=== PATIENT | male | born 1965 | race Caucasian/White ===

== ENCOUNTER 2016-11-16 14:33 | Inpatient (IN) | payer MEDICARE, MEDICAID ==
[~2016-11-16] VITALS: Ht 185.4 cm; Wt 95.2 kg
[2016-11-16] MEDS ORDERED: NAPR1TAB86 PO (19:32)
[2016-11-16] MEDS ORDERED: GUAN1TA PO (19:32)
[2016-11-16] MEDS ORDERED: OLAN20TA PO (19:32)
[2016-11-16] MEDS ORDERED: CYCL10TA PO (19:32)
[2016-11-16] MEDS ORDERED: LYRI100C10 PO (19:32)
[2016-11-16] MEDS ORDERED: ROPI1TAB PO (19:32)
[2016-11-16] MEDS ORDERED: STRA80CA PO (19:32)
[2016-11-16] MEDS ORDERED: ALBU17IN INH (19:32)
[2016-11-16] MEDS ORDERED: GABA800T PO (19:32)
[2016-11-16] MEDS ORDERED: TOPI25TA3 PO (19:32)
[2016-11-16] MEDS ORDERED: LEXA5TAB13 PO (19:32)
[2016-11-16] MEDS ORDERED: ADDE25CA PO (19:32)
[2016-11-16] MEDS ORDERED: CIMZ200K SC (19:32)
[2016-11-16] MEDS ORDERED: NALT50TA2 PO (19:32)
[2016-11-16] MEDS ORDERED: DIVA500T9 PO (19:32)
[2016-11-16] MEDS ORDERED: LORA10TA2 PO (19:32)
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
--- NOTE | 2016-11-16 20:24 | EDDOCDS ---
Physician Documentation [facility] Name: Mansoor Denney Age: 50 yrs Sex: Male : 1965 Arrival Date: 11/16/2016 Time: 14:33 Bed I6 / Private MD: Disposition: 11/16/16 20:11 Hospitalization ordered by Ericka Kyle for Inpatient Admission. Preliminary diagnosis are Major depressive disorder, single episode, Suicidal ideations. - Bed requested for Admit. - Status is Inpatient Admission. dsf - Condition is Stable. - Problem is new. - Symptoms are unchanged. Historical: - Allergies: PENICILLINS; - Home Meds: 1. pregabalin 100 mg Oral cap 2 times per day 2. naproxen 500 mg Oral tab 1 tab 2 times per day 3. olanzapine 20 mg oral tab twice a day 4. divalproex 500 mg oral Tb24 1 tab nightly 5. cyclobenzaprine 10 mg Oral tab 3 times per day prn 6. escitalopram 5mg daily 7. Strattera 80 mg oral cap 1 cap once daily 8. sucralfate 1 gram Oral tab 4 times per day 9. naltrexone 50 mg oral tab once daily 10. topiramate 25 mg oral cp24 1 cap once daily 11. adderall 25mg daily 12. guanfacine 1 mg Oral tab twice a day FILLED ON 11/11 13. gabapentin 800 mg Oral tab 1 tab four times a day 14. ropinirole 3 mg oral tab 1 tab nightly - PMHx: restless leg; ADHD; opiate abuse; Bipolar disorder; - PSHx: none; - Social history: Smoking status: Patient uses tobacco products, heavy tobacco smoker. No barriers to communication noted, The patient speaks fluent Indonesian, Speaks appropriately for age. - Family history: Not pertinent. - : The pt / caregiver states he / she is not on anticoagulants. Home medication list is obtained from pill bottles, some pill bottles missing Unable to Verify Home Med List with the patient / caregiver. - Exposure Risk Screening:: None identified. Vital Signs: 11/16 15:18 BP 104 / 78; Pulse 92; Resp 20; Temp 98.0; Pulse Ox 97% ; Pain 8/10; jam1 15:18 Weight 101.15 kg / 223 lbs; Height 6 ft. 1 in. (185.42 cm); jam1 19:41 BP 118 / 80; Pulse 94; Resp 18; Temp 97.0; Pulse Ox 97% ; Pain 9/10; ajs 15:18 Body Mass Index 29.42 (101.15 kg, 185.42 cm) jam1 19:[address] Sandoval [facility] MDM: 15:08 Vital Signs ordered. ml 15:09 Consult PFS/PSA/Health Economist: Patient's case requires discussion with on-call Psychiatrist ordered. 16:01 Consult PFS/PSA/Health Economist: Patient's case requires discussion with on-call [facility] Psychiatrist complete. 16:21 REGULAR DIET PLASTIC MURDOCK+DIET ordered. EDMS 17:27 Admit to IMHU: ordered. EDMS 18:25 MHE Legal paperwork was scanned into [employer] and attached to record. 19:22 Misc. Nursing Order ordered. 19:23 BED REQUEST+ADM ordered. EDMS 19:39 Financial registration complete. ks16 19:42 [place] Payment Agreement was scanned into [employer] and attached to record. [email or web address] Signatures: Dispatcher [employer] EDNoy Miller MD MD ml Michelson, Staci, RN RN srm Hudson, Sergio, PSA PSA Teresita Luther,RN RN dsLita Hutson RN RN Fernanda Haley, Reg Reg ks16 The chart was reviewed and I authenticate all verbal orders and agree with the evaluation and treatment provided.Corrections: (The following items were deleted from the chart) 19:50 15:13 Home Meds: ropinirole 3 mg oral tab 1 tab as directed; srm dsf 20:12 20:08 VALPROIC ACID (DEPAKOTE)+LAB ordered. EDMS EDMS Attachments: 19:42 [facility] Payment Agreement [email or web address] MTDD
[2016-11-16 20:36] VITALS: BP 118/87
[2016-11-17] MEDS ORDERED: ALBUTEROL 90 MCG/ACT 8GM HFA INHALER INH PRN (00:30)
[2016-11-17] MEDS ORDERED: MAALOX 30 ML SUSP *UDC PO PRN (01:15)
[2016-11-17] MEDS ORDERED: ACETAMINOPHEN TAB 650MG DOSE (2X325MG) PO PRN (01:15)
[2016-11-17] MEDS ORDERED: MOM 30ML SUSPENSION UDC PO PRN (01:15)
[2016-11-17] MEDS: PREGABALIN 100 MG CAP (LYRICA) PO SCH ×3 (01:16→21:11)
[2016-11-17] MEDS: CYCLOBENZAPRINE 10 MG TAB PO SCH ×4 (01:16→21:10)
[2016-11-17] MEDS: NAPROXEN 250 MG TAB PO SCH ×3 (01:17→21:11)
[2016-11-17] MEDS: DIVALPROEX 250MG *ER* TAB PO SCH ×2 (01:17→21:10)
[2016-11-17] MEDS: OLANZapine 10 MG TAB PO SCH ×3 (01:18→21:11)
[2016-11-17] MEDS: guanFACINE 1 MG TAB PO SCH ×3 (01:24→21:10)
[2016-11-17] MEDS: rOPINIRole 1MG TAB PO SCH ×2 (01:24→21:11)
[2016-11-17 06:30] VITALS: BP 110/67
[2016-11-17] MEDS: NALTREXONE 50 MG TAB PO SCH (08:17)
[2016-11-17] MEDS: TOPIRAMATE (TopAMAX) 25 MG TAB PO SCH (08:17)
[2016-11-17] MEDS: ESCITALOPRAM OXALATE 5MG TABLET (LEXAPRO) PO SCH (08:17)
[2016-11-17] MEDS: NICOTINE 21MG/24HR 1 EA TRANSDERMAL TD SCH (08:17)
[2016-11-17] MEDS: ATOMOXETINE HCL 40 MG CAP (STRATTERA) PO SCH (08:17)
[2016-11-17] MEDS: LORATADINE 10 MG TAB PO SCH (08:18)
--- NOTE | 2016-11-17 11:21 | HPEPDOC ---
Medical History and Physical Date of Admission Nov 16, 2016 at 20:30 History and Physical PCP: Dr Philippe Meier ATTENDING: Dr. Luis Mohr HPI: 50yoF admitted to [facility] for MDD, being medically examined today. Patient is transferred from [facility]. Recently admitted to [facility]. Patient is reporting chronic low back pain which she states is not adequately controlled on his usual pain control/outpatient medication regimen. He is requesting adjustment in his medications. He states his primary care provider in [place] prescribes his medications for his back pain which include Lyrica, Flexeril, and gabapentin. Requip for restless leg syndrome. He states his previous primary care provider prescribed him fentanyl patch 100 g and this worked much better for his pain and he is requesting to be placed on this today. He is requesting pain management opinion. Denies any fevers, chills, weakness, fatigue, PEDRO, CP, SOB, cough, palpitations , abdominal pain, N/V/D or changes in bowel or bladder habits. PMHx: RLS ADHD Bipolar disorder opiate use disorder chronic back pain Chronic pain H/O Hepatitis C- Pt states s/p 3 mo treatment completed 04/29 [facility]. Ankylosing spondylitis Tobacco use Allergic rhinitis COPD PSHX: Denies SOCHX: Resides in: [facility] Marital Status: Kids: 2 Employment: Disabled Tobacco use: 2-3 packs per day ETOH: 6 beers per week Illicit Drugs: Crack cocaine patient states "when I can", marijuana monthly. IV Drug Use: Denies Tattoos done unprofessionally: 6 FAMHX: Mother: , lung cancer Father: Estranged Siblings: 2 sisters Alive, well Children: Alive, well Unexpected deaths due to medical reasons: None. ROS: As noted in HPI, otherwise 11pt ROS of systems reviewed and unremarkable. PE: GEN: 50yoM, appears stated age. Well-nourished, well developed. No acute distress. Alert and oriented x 3. Pleasant, interactive. HEENT: Normocephalic, atraumatic. Pupils are equal, round, and reactive to light. Extraocular movements are intact. No nystagmus appreciated. Sclera are nonicteric. Conjunctiva without injection. Nose midline. Nasal turbinates without bogginess. EACs both patent BL. TMs both visualized and horan with good cone of light, no bulging or erythema. No facial asymmetry. Moist mucous membranes. Dentition fair. Pharynx pink and moist, no cobblestoning. Neck supple , trachea midline. No lymphadenopathy or thyromegaly appreciated. CHEST: Regular rate and rhythm, +S1, +S2 LUNGS: Clear to auscultation bilaterally. No wheezes, rales, or rhonchi. Breathing appears symmetric and easy. Patient is speaking in full sentences. No accessory muscle use. ABD: Round, soft, non-tender, non-distended. +Bowel sounds throughout. No rebound or guarding. No costovertebral angle tenderness. EXT: Pulses 2+ bilaterally dorsalis pedis and radial. No lower extremity edema appreciated. SKIN: [place], dry, warm. Capillary refill <2sec. No rashes. NEURO: Alert and oriented x 3. Cranial nerves III-XII are intact. No focal deficits appreciated. Ambulating without assistive devices. EKG: pending. Labs from [facility] Toxicology remarkable for THC, amphetamine, opiate, TCA UA unremarkable, WBC 11.5 Hgb 16.5 Hct 48.2 Plt 291 BUN 21 SCr 1.2 Na 138 K 4.0 Cl 103 Ca 8.9 AST 18 ALT 28 TSH 0.984 A&P: 50yoF admitted to [facility] for MDD 1. Psych. Plan per Psychiatry. Obtain baseline EKG to assure the safety of psychiatric medications as they can prolong the QT interval. 2. Nicotine dependence. Patch available. 3. Borderline EKG. No cardiac signs or symptoms appreciated on exam, follow with PCP. 4. Follow up with PCP on discharge. 5. Substance use. Per psychiatry. Continue with MVI, Thiamine, and Folic Acid supplementation. 6. Restless leg syndrome. Continue Requip 3 mg at bedtime. 7. Chronic back pain/chronic pain. Patient remains on Lyrica 100 mg twice a day , Flexeril 10 mg 3 times a day, naproxen 500 mg twice a day as needed. Will request copy of records from primary care provider including any prior imaging. Consider pain management consultation. Confirm outpatient medication regimen. 8. Allergic rhinitis. Continue loratadine 10 mg daily. 9. Ankylosing spondylitis. Continue Cimzia 200 mg subcutaneous every monthly. 10. COPD. Continue albuterol 2 puffs every 4 hours as needed. 11. Staff member present throughout exam, safety relief valve technician Ed. Vital Signs Vital Signs Label Value Date Time Patient Temperature 95.9 degrees F 11/17/16 0630 Temperature Source Tympanic 11/17/16 0630 Pulse 88 11/17/16 0630 Respiratory Rate 18 bpm 11/17/16 0630 Blood Pressure Assessment 110/67 (81) 11/17/16 0630 Home Medications Scheduled Amphetamine/Dextroamphetamine (Adderall Xr 25 mg) 1 Cap Cap 1 CAP PO DAILY Atomoxetine Hcl (Strattera) 80 Mg Cap 80 MG PO DAILY Certolizumab Pegol (Cimzia) 200 Mg/Ml Kit 200 MG SC QMONTH Divalproex Sodium (Divalproex Sodium ER) 500 Mg Tab 500 MG PO QHS Escitalopram Oxalate (Lexapro) 5 Mg Tab 5 MG PO DAILY Gabapentin (Gabapentin) 800 Mg Tab 800 MG PO QID Guanfacine HCl (Guanfacine HCl) 1 Mg Tab 1 MG PO BID Naltrexone HCl (Naltrexone HCl) 50 Mg Tab 50 MG PO DAILY Olanzapine (Olanzapine) 20 Mg Tab 20 MG PO BID Pregabalin (Lyrica) 100 Mg Cap 100 MG PO BID Ropinirole Hydrochloride (Ropinirole HCl) 1 Mg Tab 3 MG PO QHS Topiramate (Topiramate) 25 Mg Tab 25 MG PO DAILY Scheduled PRN Albuterol Sulfate (Ventolin Hfa) 200 Puff/8 Gm Aers 2 PUFF INH Q4H PRN PRN SHORTNESS OF BREATH Cyclobenzaprine HCl (Cyclobenzaprine HCl) 10 Mg Tab 10 MG PO TID PRN PRN SPASMS Loratadine (Loratadine) 10 Mg Tab 10 MG PO DAILY PRN PRN ALLERGIES Naproxen Sodium (Naproxen Sodium) 500 Mg Tab 500 MG PO BID PRN PRN PAIN Allergies Coded Allergies: Penicillins (Unverified Allergy, Unknown, 11/16/16) Alycia Beatty Nov 17, 2016 11:21
[2016-11-17 18:00] VITALS: BP 132/83
[2016-11-17] MEDS: traZODone 50 MG TAB PO PRN (21:11)
--- NOTE | 2016-11-18 02:13 | MHHPE ---
DATE OF ADMISSION: 11/16/2016 DATE OF SERVICE: 11/17/2016 CHIEF COMPLAINT: I was depressed and suicidal. HISTORY OF PRESENTING ILLNESS: Mansoor Denney is a 50-year-old man with reported history of psychiatric problems who was seen at the emergency department as a transfer from [facility] due to presenting at that facility, the night prior to his [facility] ([facility] [place]) visit, with acute suicidal ideation and report of worsening depression. He reports a long history of depression and previous diagnosis of bipolar disorder, and stated that in the past 2 days his depressive symptoms have been worsening. He cites his leaving him and not allowing him to see their 3-year-old son, as well as financial difficulties and chronic pain, as precipitating factors for current worsening depression. He says that he has been behind on his rent since July and fears that he will soon be evicted. Due to said stressors, he said he felt that he was better off killing himself. PAST PSYCHIATRIC HISTORY: The patient reports a lengthy history of bipolar disorder and previous diagnosis of attention deficit hyperactivity disorder (ADHD). He reports two previous psychiatric hospitalizations at [facility], both this year. Previously, was followed by Dr. Fowler in [place]. He has been with the same doctor for 5 years. He is unable to remember details of his treatments including the medications. He reports a previous suicide attempt, involving stabbing himself in the abdomen ( superficially), but was stopped by state troopers who "tased" him at the time. SUBSTANCE ABUSE HISTORY: He smokes 2-3 packs of cigarettes a day, uses alcohol occasionally, although used to be a heavy drinker in the past. He reports that he uses crack cocaine occasionally, but last used about a month ago and has been clean since then. MEDICAL HISTORY: He reports ankylosing spondylitis causing severe back pain. ALLERGIES: He is allergic to PENICILLIN. PERSONAL HISTORY: He reports that he was born in [place]. He has been for 6 years, has two children, 5-year-old male and 3-year-old male. LEGAL HISTORY: Involves what he describes as a couple of arrests. EDUCATION: He read up to the 10th grade. Currently supports himself through disability funds. FAMILY HISTORY: Grandmother had nervous breakdown. No family history of suicide. MENTAL STATUS EXAMINATION: The patient is of tall, average build. He wears a salt and pepper type philip. His grooming and hygiene are fair. He is appropriately dressed. Behavior is calm, and he relates conversationally and appears not to be in distress. No abnormal involuntary movements noted. His speech is of normal volume, rate and rhythm. Thought process is logical. No delusional contents and he denies any form of hallucination. He reports his mood as depressed. Reports fleeting suicidal thoughts, but denied active plans or intents. He is alert and oriented to time, place and person. His insight is fair and judgment is not impaired. DIAGNOSES: 1. Bipolar disorder. 2. History of ankylosing spondylitis. PROBLEM LIST: 1. Depression. 2. Risk for suicide. PLAN: Admission to inpatient services with provision of safe therapeutic setting, He will be continued on his current home medications with ongoing reviews and dose adjustments as may be clinically indicated. He will be provided with therapeutic programming including group, individual and activity therapies, ongoing assessments and supportive therapy. Estimated length of stay: 4-7 days. [facility]
[2016-11-18 06:35] VITALS: BP 116/60
[2016-11-18] MEDS: OLANZapine 10 MG TAB PO SCH ×2 (09:45→21:00)
[2016-11-18] MEDS: CYCLOBENZAPRINE 10 MG TAB PO SCH ×3 (09:45→21:00)
[2016-11-18] MEDS: guanFACINE 1 MG TAB PO SCH ×2 (09:45→21:01)
[2016-11-18] MEDS: PREGABALIN 100 MG CAP (LYRICA) PO SCH ×2 (09:45→21:00)
[2016-11-18] MEDS: TOPIRAMATE (TopAMAX) 25 MG TAB PO SCH (09:45)
[2016-11-18] MEDS: NICOTINE 21MG/24HR 1 EA TRANSDERMAL TD SCH (09:45)
[2016-11-18] MEDS: NALTREXONE 50 MG TAB PO SCH (09:46)
[2016-11-18] MEDS: LORATADINE 10 MG TAB PO SCH (09:46)
[2016-11-18] MEDS: ESCITALOPRAM OXALATE 5MG TABLET (LEXAPRO) PO SCH (09:46)
[2016-11-18] MEDS: NAPROXEN 250 MG TAB PO SCH ×2 (09:46→21:01)
[2016-11-18] MEDS: ATOMOXETINE HCL 40 MG CAP (STRATTERA) PO SCH (09:46)
--- NOTE | 2016-11-18 11:57 | CR.PDOC ---
[facility] Consultation General Date of Consultation: 11/18/16 Chief Complaint The patient is a 50-year-old male admitted with a reason for visit of Unspecified Depressive Disorder. Pain management is asked to see the patient for complaints of low back pain radiation of pain into the right leg and a reported history of ankylosing spondylitis. History of Present Illness Patient reports that he has been having back pain for many years. Patient reports he was diagnosed with ankylosing spondylitis in 2004. Patient reports that he takes an injection every 2 weeks for treatment of this disease. Patient reports that over the last several weeks he has been having increased pain in the low back. Patient reports pain radiates across the back. And with walking pain radiates into the right leg. He also notes that at times he will have pain extending from the low back up to the shoulder blades. He states that he did have a fall of about 2 feet landing on his buttocks. He was taken to the [facility] where they did do an x-ray. He states he was given an injection of Dilaudid all of a muscle relaxer and Valium. He does acknowledge Dr. Rasheed Mejia M.D. as his pain management provider located at [facility] and [facility]. He did have an updated MRI of his lumbar spine on 02/12/2016. And did have a lumbar epidural steroid injection on 04/19/2016. He states he is uncertain how much this helped but it did decrease some of his pain. Currently denies any loss of bowel or bladder control. Does report some constipation. Denies any numbness or tingling into the legs or feet. Denies any other areas of pain. Allergies Coded Allergies: Penicillins (Unverified Allergy, Unknown, 11/16/16) Home Medications Scheduled Amphetamine/Dextroamphetamine (Adderall Xr 25 mg) 1 Cap Cap 1 CAP PO DAILY ( Reported) Atomoxetine Hcl (Strattera) 80 Mg Cap 80 MG PO DAILY (Reported) Certolizumab Pegol (Cimzia) 200 Mg/Ml Kit 200 MG SC QMONTH (Reported) Divalproex Sodium (Divalproex Sodium ER) 500 Mg Tab 500 MG PO QHS (Reported) Escitalopram Oxalate (Lexapro) 5 Mg Tab 5 MG PO DAILY (Reported) Gabapentin (Gabapentin) 800 Mg Tab 800 MG PO QID (Reported) Guanfacine HCl (Guanfacine HCl) 1 Mg Tab 1 MG PO BID (Reported) Naltrexone HCl (Naltrexone HCl) 50 Mg Tab 50 MG PO DAILY (Reported) Olanzapine (Olanzapine) 20 Mg Tab 20 MG PO BID (Reported) Pregabalin (Lyrica) 100 Mg Cap 100 MG PO BID (Reported) Ropinirole Hydrochloride (Ropinirole HCl) 1 Mg Tab 3 MG PO QHS (Reported) Topiramate (Topiramate) 25 Mg Tab 25 MG PO DAILY (Reported) Scheduled PRN Albuterol Sulfate (Ventolin Hfa) 200 Puff/8 Gm Aers 2 PUFF INH Q4H PRN PRN SHORTNESS OF BREATH (Reported) Cyclobenzaprine HCl (Cyclobenzaprine HCl) 10 Mg Tab 10 MG PO TID PRN PRN SPASMS (Reported) Loratadine (Loratadine) 10 Mg Tab 10 MG PO DAILY PRN PRN ALLERGIES (Reported) Naproxen Sodium (Naproxen Sodium) 500 Mg Tab 500 MG PO BID PRN PRN PAIN ( Reported) Past Medical History Past Medical History Medical History Past medical history significant for anxiety and depression, GERD Family History Significant Family History: Noncontributory Social History Psychosocial History: Other (recently admitted for depression with suicidal thoughts.) Recent Travel/Sick Contacts: Denies: Recent sick contacts, Recent travel * Smoker: current smoker (2-21/2 pack/day), cigarettes Alcohol: occationally Drugs: marijuana Review of Systems Subjective Constitutional: Reports: fatigue, Denies: unexplained weight loss Skin: Denies: lesions, rash Pulmonary: Reports: cough (dry nonproductive), shortness of breath (with exertion), wheezing Cardiovascular: Denies: chest pain, edema, palpitations Gastrointestinal: Reports: constipation, Denies: loss of bowel control Genitourinary: Denies: other (denies loss of bladder control) Musculoskeletal: Reports: joint pain, muscle stiffness, other (reports history of ankylosing spondylitis has not seen rheumatology in many years) Neurological: Reports: other (admits to migraine headaches states has not had any recently denies seizures) Psych: Reports: depression, memory issues Physical Examination Physical Examination Vital Signs/I&O Vital Signs Date Time Temp Pulse Resp B/P Pulse Ox O2 Delivery O2 Flow Rate FiO2 11/18/16 09:45 116/60 1/5/17 06:35 96.3 88 16 11/17/16 18:00 Room Air 11/16/16 20:36 99 General Exam: Positive: alert, attentive, no acute distress, oriented times three ENT EXAM: Positive: normocephalic Neck Exam: Positive: Other (no lymphadenopathy no thyromegaly) Chest Exam: Positive: Clear to auscultation, Other (decreased respiratory excursion decreased breath sounds at bases thoracic kyphosis is noted) Heart Exam: Positive: Normal S1, S2, Regular rate and rhythm, Negative: Murmurs, Rubs Abdominal Exam: Positive: Normal bowel sounds, Soft Extremity Exam: Negative: Edema Skin Exam: Positive: Dry, Warm, Negative: Lesions, Rashes Neuro Exam: Positive: Other (gait is antalgic posture is stooped some difficulty with short-term memory is noted. Deep tendon reflexes are 1+ in the bilateral upper and lower extremities.) Inspection of spine Point tenderness with palpation over the lumbar spinous processes and across the lumbosacral axis. Tenderness with palpation bilaterally at the sacroiliac joints right side greater than left. He rises easily to a standing position. Muscle strength 5 over 5 distally and proximally in the bilateral lower extremities. No foot drop. RAD Interpretation STUDY: x-ray of the lumbar spine Rad Actions: Report Reviewed (completed on 10/04/2016 and her [facility]. This demonstrated no fracture no pars defect no lumbar stenosis or spondylolisthesis. Did demonstrate mild degenerative disc disease and small anterior osteophytes at the lower lumbar facets.), Other Rad Comments: (MRI of the lumbar spine was completed at [facility] on 02/12/2016. This demonstrated mild to moderate moderate lumbar stenosis at L4-5. This was felt to be secondary to mild symmetrical annular bulge at L4-5, as well as short AP dimensions of the pedicles at this level the thecal sac and somewhat higher than typical but was felt to not demonstrate any evidence of tethering of the spinal cord or epidural lipomatosis.) Assessment/Plan Assessment 1. Low back pain. 2. Lumbar disc displacement without myelopathy. 3. Lumbar radiculopathy. 4. History of ankylosing spondylitis. Plan Discussed in depth with patient that we will not be using opioid medications. Patient states that he has not looking for opioids.Patient is currently on Certolizamab Pegol for treatment of his ankylosing spondylitis. Would make no changes in this. I did encourage patient to contact his pain management provider in [facility] for follow-up for his chronic back pain. Currently he is on Lyrica and gabapentin and would make no changes in this. Would recommend discontinuation of Flexeril and perhaps give a trial to tizanidine 4 mg 3 times a day. Also consider use of meloxicam as his anti- inflammatory. This would need to be balanced carefully with his history of GERD. Thank you Ms. Beatty for allowing us to participate in the care of your patient Mansoor Denney. Should she have any further questions would certainly be glad to discuss this with you at any time. Shania Brand SEAMAN Nov 18, 2016 11:57
--- NOTE | 2016-11-18 17:30 | ECGEPIP ---
Stationary ECG Study [facility] Test Date: 2016-11-18 Pat Name: PERRI MENDES Department: Room: [place] [address] Gender: M Mma Fighter: NANDINI : 1965 Requested By: Alycia Beatty Order Number: [id number] Reading MD: Jamie Bagley Measurements Intervals [place] Rate: 87 P: 60 SC: 127 QRS: 20 QRSD: 86 T: 76 QT: 363 QTc: 437 Interpretive Statements NORMAL SINUS RHYTHM NORMAL TRACING Electronically Signed On 11-18-2016 17:30:48 EST by Jamie Bagley
[2016-11-18 18:00] VITALS: BP 107/83
--- NOTE | 2016-11-18 18:45 | IPN ---
DATE: 11/18/2016 TREATMENT: Mansoor Denney is a 50-year-old who was admitted on 11/16/2016 as a transfer from [facility] due to presenting at that facility with worsening depression and suicidal ideation. He is diagnosed with bipolar disorder, in addition to medical diagnosis of ankylosing spondylitis. CURRENT MEDICATIONS: - Strattera 18 mg orally daily - Lexapro 5 mg orally daily - naltrexone 50 mg orally daily for pain management - Topamax 25 mg orally daily - Depakote 500 mg at bedtime - olanzapine 20 mg orally twice a day for moods and psychotic symptoms - he also is prescribed pregabalin 100 mg twice daily for chronic pain and - ropinirole 3 mg at bedtime for restless leg syndrome The patient has been compliant with his medications, although repeatedly requesting for narcotic pain medications for treatment of his back pain, despite ambulating normally and showing no evidence of being in distress related to pain. 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 No new mood or psychotic symptoms reported. OBSERVATION: Vital signs are stable with blood pressure 116/60, pulse of 88, respirations 16, and temperature 96.3. He is noted to be fairly groomed, appropriately dressed, interacts quite normally with his peers. Showing no signs of distress. His mood does not appear objectively severely depressed. Affect has been appropriate. No overt psychotic features noted. No medication-related adverse events, and he denies active suicidal thoughts, plan, or intent. No evidence of his exhibiting homicidal ideation. ASSESSMENT: The patient has adjusted relatively well to current setting, and seems to be responding to treatment. Does not appear to pose significant risk of danger to self or to others. PLAN: Current treatment will be continued with ongoing assessment. If stable, he will be scheduled for discharge. [facility]
[2016-11-18] MEDS: DIVALPROEX 250MG *ER* TAB PO SCH (21:00)
[2016-11-18] MEDS: traZODone 50 MG TAB PO PRN (21:00)
[2016-11-18] MEDS: rOPINIRole 1MG TAB PO SCH (21:00)
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
--- NOTE | 2016-11-18 21:24 | EDDOCDS ---
Physician Documentation [facility] Name: Mansoor Denney Age: 50 yrs Sex: Male : 1965 Arrival Date: 11/16/2016 Time: 14:33 Bed I6 / Private MD: Disposition: 11/16/16 20:11 Hospitalization ordered by Ericka Kyle for Inpatient Admission. Preliminary diagnosis are Major depressive disorder, single episode, Suicidal ideations. - Bed requested for Admit. - Status is Inpatient Admission. dsf - Condition is Stable. - Problem is new. - Symptoms are unchanged. Historical: - Allergies: PENICILLINS; - Home Meds: 1. pregabalin 100 mg Oral cap 2 times per day 2. naproxen 500 mg Oral tab 1 tab 2 times per day 3. olanzapine 20 mg oral tab twice a day 4. divalproex 500 mg oral Tb24 1 tab nightly 5. cyclobenzaprine 10 mg Oral tab 3 times per day prn 6. escitalopram 5mg daily 7. Strattera 80 mg oral cap 1 cap once daily 8. sucralfate 1 gram Oral tab 4 times per day 9. naltrexone 50 mg oral tab once daily 10. topiramate 25 mg oral cp24 1 cap once daily 11. adderall 25mg daily 12. guanfacine 1 mg Oral tab twice a day FILLED ON 11/11 13. gabapentin 800 mg Oral tab 1 tab four times a day 14. ropinirole 3 mg oral tab 1 tab nightly - PMHx: restless leg; ADHD; opiate abuse; Bipolar disorder; - PSHx: none; - Social history: Smoking status: Patient uses tobacco products, heavy tobacco smoker. No barriers to communication noted, The patient speaks fluent Slovenian, Speaks appropriately for age. - Family history: Not pertinent. - : The pt / caregiver states he / she is not on anticoagulants. Home medication list is obtained from pill bottles, some pill bottles missing Unable to Verify Home Med List with the patient / caregiver. - Exposure Risk Screening:: None identified. Vital Signs: 11/16 15:18 BP 104 / 78; Pulse 92; Resp 20; Temp 98.0; Pulse Ox 97% ; Pain 8/10; jam1 15:18 Weight 101.15 kg / 223 lbs; Height 6 ft. 1 in. (185.42 cm); jam1 19:41 BP 118 / 80; Pulse 94; Resp 18; Temp 97.0; Pulse Ox 97% ; Pain 9/10; ajs 15:18 Body Mass Index 29.42 (101.15 kg, 185.42 cm) jam1 19:[address] Sandoval [facility] MDM: 15:08 Vital Signs ordered. ml 15:09 Consult PFS/PSA/Scribing Machine Operator: Patient's case requires discussion with on-call Psychiatrist ordered. 16:01 Consult PFS/PSA/Scribing Machine Operator: Patient's case requires discussion with on-call [facility] Psychiatrist complete. 16:21 REGULAR DIET PLASTIC MURDOCK+DIET ordered. EDMS 17:27 Admit to IMHU: ordered. EDMS 18:25 MHE Legal paperwork was scanned into [employer] and attached to record. 19:22 Misc. Nursing Order ordered. 19:23 BED REQUEST+ADM ordered. EDMS 19:39 Financial registration complete. ks 19:42 [facility] Payment Agreement was scanned into [email or web address] and attached to record. 11/17 09:32 T-Sheet-- Draft Copy was scanned into [email or web address] and attached to record. gb Signatures: Dispatcher [employer] EDNoy Miller MD MD ml Michelson, Staci, RN RN [facility] Sergio Treviño, PSA PSA jl Stephanie Will, Reg Reg gb Teresita Wylie,Lita Asif RN, RN RN Fernanda Haley, Reg Reg ks16 The chart was reviewed and I authenticate all verbal orders and agree with the evaluation and treatment provided.Corrections: (The following items were deleted from the chart) 11/16 19:50 15:13 Home Meds: ropinirole 3 mg oral tab 1 tab as directed; srm dsf 20:12 20:08 VALPROIC ACID (DEPAKOTE)+LAB ordered. EDMS EDMS Attachments: 19:42 [facility] Payment Agreement [email or web address] 11/17 09:32 T-Sheet-- Draft Copy gb Chart Complete MTDD
--- NOTE | 2016-11-18 21:24 | EDDOCDS ---
Physician Documentation [facility] Name: Mansoor Denney Age: 50 yrs Sex: Male : 1965 Arrival Date: 11/16/2016 Time: 14:33 Bed I6 / Private MD: Disposition: 11/16/16 20:11 Hospitalization ordered by Ericka Kyle for Inpatient Admission. Preliminary diagnosis are Major depressive disorder, single episode, Suicidal ideations. - Bed requested for Admit. - Status is Inpatient Admission. dsf - Condition is Stable. - Problem is new. - Symptoms are unchanged. Historical: - Allergies: PENICILLINS; - Home Meds: 1. pregabalin 100 mg Oral cap 2 times per day 2. naproxen 500 mg Oral tab 1 tab 2 times per day 3. olanzapine 20 mg oral tab twice a day 4. divalproex 500 mg oral Tb24 1 tab nightly 5. cyclobenzaprine 10 mg Oral tab 3 times per day prn 6. escitalopram 5mg daily 7. Strattera 80 mg oral cap 1 cap once daily 8. sucralfate 1 gram Oral tab 4 times per day 9. naltrexone 50 mg oral tab once daily 10. topiramate 25 mg oral cp24 1 cap once daily 11. adderall 25mg daily 12. guanfacine 1 mg Oral tab twice a day FILLED ON 11/11 13. gabapentin 800 mg Oral tab 1 tab four times a day 14. ropinirole 3 mg oral tab 1 tab nightly - PMHx: restless leg; ADHD; opiate abuse; Bipolar disorder; - PSHx: none; - Social history: Smoking status: Patient uses tobacco products, heavy tobacco smoker. No barriers to communication noted, The patient speaks fluent Mauritanian, Speaks appropriately for age. - Family history: Not pertinent. - : The pt / caregiver states he / she is not on anticoagulants. Home medication list is obtained from pill bottles, some pill bottles missing Unable to Verify Home Med List with the patient / caregiver. - Exposure Risk Screening:: None identified. Vital Signs: 11/16 15:18 BP 104 / 78; Pulse 92; Resp 20; Temp 98.0; Pulse Ox 97% ; Pain 8/10; jam1 15:18 Weight 101.15 kg / 223 lbs; Height 6 ft. 1 in. (185.42 cm); jam1 19:41 BP 118 / 80; Pulse 94; Resp 18; Temp 97.0; Pulse Ox 97% ; Pain 9/10; ajs 15:18 Body Mass Index 29.42 (101.15 kg, 185.42 cm) jam1 19:[address] Sandoval [facility] MDM: 15:08 Vital Signs ordered. ml 15:09 Consult PFS/PSA/Ob/Gyn Nurse: Patient's case requires discussion with on-call Psychiatrist ordered. 16:01 Consult PFS/PSA/Ob/Gyn Nurse: Patient's case requires discussion with on-call [facility] Psychiatrist complete. 16:21 REGULAR DIET PLASTIC MURDOCK+DIET ordered. EDMS 17:27 Admit to IMHU: ordered. EDMS 18:25 MHE Legal paperwork was scanned into [employer] and attached to record. 19:22 Misc. Nursing Order ordered. 19:23 BED REQUEST+ADM ordered. EDMS 19:39 Financial registration complete. ks 19:42 [facility] Payment Agreement was scanned into [employer] and attached to record. 11/17 09:32 T-Sheet-- Draft Copy was scanned into [employer] and attached to record. gb Signatures: Dispatcher [employer] EDNoy Miller MD MD ml Michelson, Staci, RN RN [facility] Sergio Treviño, PSA PSA jl Stephanie Will, Reg Reg gb Teresita Wylie,Lita Asif RN, RN RN Fernanda Haley, Reg Reg ks16 The chart was reviewed and I authenticate all verbal orders and agree with the evaluation and treatment provided.Corrections: (The following items were deleted from the chart) 11/16 19:50 15:13 Home Meds: ropinirole 3 mg oral tab 1 tab as directed; srm dsf 20:12 20:08 VALPROIC ACID (DEPAKOTE)+LAB ordered. EDMS EDMS Attachments: 19:42 [facility] Payment Agreement [email or web address] 11/17 09:32 T-Sheet-- Draft Copy gb Chart Complete MTDD
[2016-11-19 06:34] VITALS: BP 111/73
[2016-11-19] MEDS ORDERED: CIMZIA SQ SCH (09:00)
[2016-11-19] MEDS ORDERED: MELOXICAM (MOBIC) 7.5 MG TAB PO SCH (09:00)
[2016-11-19] MEDS: NICOTINE 21MG/24HR 1 EA TRANSDERMAL TD SCH (09:14)
[2016-11-19] MEDS: OLANZapine 10 MG TAB PO SCH (09:14)
[2016-11-19] MEDS: PREGABALIN 100 MG CAP (LYRICA) PO SCH (09:14)
[2016-11-19] MEDS: NALTREXONE 50 MG TAB PO SCH (09:15)
[2016-11-19] MEDS: LORATADINE 10 MG TAB PO SCH (09:15)
[2016-11-19] MEDS: ESCITALOPRAM OXALATE 5MG TABLET (LEXAPRO) PO SCH (09:15)
[2016-11-19] MEDS: TOPIRAMATE (TopAMAX) 25 MG TAB PO SCH (09:15)
[2016-11-19] MEDS: ATOMOXETINE HCL 40 MG CAP (STRATTERA) PO SCH (09:15)
[2016-11-19] MEDS: tiZANidine 4 MG TAB PO SCH ×2 (09:15→16:15)
[2016-11-19 09:16] VITALS: BP 111/73
[2016-11-19] MEDS: guanFACINE 1 MG TAB PO SCH (09:16)
[2016-11-19] MEDS ORDERED: MELO7.5T6 PO (14:00)
[2016-11-19] MEDS ORDERED: ZANA4TAB PO ×2 (14:00→14:47)
[2016-11-19] MEDS ORDERED: NICO21PAT TD (14:00)
[2016-11-19] MEDS ORDERED: TOPA25TA10 PO (14:47)
[2016-11-19] MEDS ORDERED: REQU3TAB PO (14:47)
[2016-11-19] MEDS ORDERED: MOBI15TA PO (14:47)
[2016-11-19] MEDS ORDERED: TENE1TAB PO (14:47)
[2016-11-19] MEDS ORDERED: CLAR1TAB2 PO (14:47)
[2016-11-19] MEDS ORDERED: ZYPR20TA PO (14:47)
[2016-11-19] MEDS ORDERED: LEXA5TAB13 PO (14:47)
[2016-11-19] MEDS ORDERED: DEPA500T2 PO (14:47)
[2016-11-19] MEDS ORDERED: NALT50TA2 PO (14:47)
[2016-11-19] MEDS ORDERED: NICO21DI5 TD (14:47)
[2016-11-19] MEDS ORDERED: LYRI100C10 PO (14:47)
[2016-11-19] MEDS ORDERED: STRA80CA PO (14:47)
[2016-11-19] MEDS ORDERED: ALBU17IN2 INH (14:47)
[2016-11-19] MEDS ORDERED: REVIA PO (14:47)
[2016-11-19 18:24] VITALS: BP 114/68
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
== END 2016-11-19 18:50 | disposition home or self-care (01) | DRG 885 ==
LOC: M ED 14:33 → M PSY 20:30
PROVIDERS: ADMIT Psychiatry & Neurology Psychiatry; ATTEND Psychiatry & Neurology Psychiatry
DX: F31.9 Bipolar disorder, unspecified (principal); M45.6 Ankylosing spondylitis lumbar region; F17.210 Nicotine dependence, cigarettes, uncomplicated; K21.9 Gastro-esophageal reflux disease without esophagitis; J44.9 Chronic obstructive pulmonary disease, unspecified; J30.9 Allergic rhinitis, unspecified; G25.81 Restless legs syndrome; Z81.8 Family history of other mental and behavioral disorders; Z79.899 Other long term (current) drug therapy; M51.16 Intervertebral disc disorders with radiculopathy, lumbar region